=== PATIENT | female | born 1965 | race Native Hawaiian/Other Pacific Islander ===

== ENCOUNTER 2022-01-30 10:22 | Outpatient (CLI) | payer OTHER, SELFPAY ==
[2022-01-30 17:41] LABS: Chloride* 101 mmol/L (96-114); Potassium* 3.9 mmol/L (3.6-5.1); Sodium* 135 mmol/L (135-149)
[2022-01-30 17:43] LABS: Creatinine* 0.6 mg/dL (0.5-1.5); Estimated Glomerular Filt Rate 105 ml/min
[2022-01-30 17:44] LABS: Blood Urea Nitrogen* 18 mg/dL (7-30); Carbon Dioxide* 28 mmol/L (20-32); Glucose* 93 mg/dL (60-115)
[2022-01-30 17:45] LABS: Calcium* 9.7 mg/dL (8.4-10.6)
== END 2022-01-30 10:23 | disposition home or self-care (01) ==
LOC: LONREF 10:24
PROVIDERS: PCP Family Medicine; Visit Provider Family Medicine
DX: I10 Essential (primary) hypertension (principal)
CPT/HCPCS: 80048

== ENCOUNTER 2022-04-10 08:00 | Outpatient (CLI) | payer OTHER, SELFPAY ==
--- NOTE | 2022-04-10 08:15 | CRLHL7_ITS ---
For Patients: As a result of the Century Cures Act, medical imaging exams and procedure reports are released immediately into your electronic medical record. You may view this report before your referring provider. If you have questions, please contact your health care provider. BILATERAL SCREENING MAMMOGRAM WITH COMPUTER-AIDED DETECTION TECHNIQUE: CC and MLO views were obtained. These mammographic images have been obtained using full-field digital technique. These mammographic images were interpreted with the benefit of computer-aided detection. COMPARISON FILM: 04/02/20, 11/04/17, 07/05/16. FINDINGS: The breasts are heterogeneously dense, which may obscure small masses IMPRESSION: There is no radiographic evidence for malignancy. ASSESSMENT: BI-RADS Category 1: Negative RECOMMENDATION: Routine screening mammogram in 1 year. A lay language report of this examination will be provided to the patient. Dipesh Lopes M.D. Diagnostic Radiologist [email or web address] ADDY/Dictated by: Dipesh Lopes MD @ 04/10/2022 8:58:00 AM (Electronically Signed)
== END 2022-04-10 08:01 | disposition home or self-care (01) ==
LOC: MAMMO 08:01
PROVIDERS: PCP Family Medicine; Visit Provider Family Medicine
DX: Z12.31 Encounter for screening mammogram for malignant neoplasm of breast (principal); R92.2 Inconclusive mammogram
CPT/HCPCS: 77063; 77067

== ENCOUNTER 2023-06-08 08:02 | Outpatient (CLI) | payer OTHER, SELFPAY ==
--- NOTE | 2023-06-08 08:15 | CRLHL7_ITS ---
For Patients: As a result of the Century Cures Act, medical imaging exams and procedure reports are released immediately into your electronic medical record. You may view this report before your referring provider. If you have questions, please contact your health care provider. BILATERAL SCREENING MAMMOGRAM WITH COMPUTER-AIDED DETECTION TECHNIQUE: CC and MLO views were obtained. These mammographic images have been obtained using full-field digital technique. These mammographic images were interpreted with the benefit of computer-aided detection. COMPARISON FILM: 04/10/22, 04/02/20, 11/04/17. FINDINGS: The breasts are heterogeneously dense, which may obscure small masses IMPRESSION: There is no radiographic evidence for malignancy. ASSESSMENT: BI-RADS Category 1: Negative RECOMMENDATION: Routine screening mammogram in 1 year. A lay language report of this examination will be provided to the patient. Dipesh Lopes M.D. Diagnostic Radiologist [email or web address] ADDY/Dictated by: Dipesh Lopes MD @ 06/08/2023 9:24:00 AM (Electronically Signed)
== END 2023-06-08 08:03 | disposition home or self-care (01) ==
LOC: MAMMO 08:07
PROVIDERS: PCP Family Medicine; Visit Provider Family Medicine
DX: Z12.31 Encounter for screening mammogram for malignant neoplasm of breast (principal); R92.2 Inconclusive mammogram
CPT/HCPCS: 77067

== ENCOUNTER 2023-08-23 12:57 | Outpatient (CLI) | payer OTHER, SELFPAY | END 2023-08-23 12:58 | disposition home or self-care (01) | PROVIDERS: PCP Family Medicine; Visit Provider Family Medicine | DX: I10 Essential (primary) hypertension (principal); R63.5 Abnormal weight gain; Z13.29 Encounter for screening for other suspected endocrine disorder | CPT/HCPCS: 80048; 84443 ==

== ENCOUNTER 2024-06-07 13:54 | Outpatient (CLI) | payer OTHER, SELFPAY | END 2024-06-07 13:55 | disposition home or self-care (01) | PROVIDERS: PCP Family Medicine; Visit Provider Registered Nurse | DX: Z01.419 Encounter for gynecological examination (general) (routine) without abnormal findings (principal); I10 Essential (primary) hypertension; E55.9 Vitamin D deficiency, unspecified; R73.03 Prediabetes; Z13.6 Encounter for screening for cardiovascular disorders; Z13.29 Encounter for screening for other suspected endocrine disorder; Z13.1 Encounter for screening for diabetes mellitus; Z78.0 Asymptomatic menopausal state; Z13.9 Encounter for screening, unspecified | CPT/HCPCS: 80061; 83001; 84443 ==

== ENCOUNTER 2024-06-21 10:10 | Outpatient (CLI) | payer OTHER, SELFPAY ==
--- NOTE | 2024-06-21 10:45 | CRLHL7_ITS ---
For Patients: As a result of the Cures Act, medical imaging exams and procedure reports are released immediately into your electronic medical record. You may view this report before your referring provider. If you have questions, please contact your health care provider. BILATERAL DIAGNOSTIC MAMMOGRAM WITH COMPUTER-AIDED DETECTION AND TOMOSYNTHESIS LEFT AXILLARY ULTRASOUND CLINICAL HISTORY: LEFT axillary lump. COMPARISON: 06/08/23, 04/10/22, 04/03/21. TECHNIQUE: Digital BILATERAL mammogram in four projections with computer-aided detection. Tomosynthesis was used in this interpretation. Real-time ultrasound imaging of LEFT axilla with imaging documentation. BREAST COMPOSITION: The breasts are heterogeneously dense, which may obscure small masses. FINDINGS: 3D CC/MLO BILATERAL mammogram images submitted. No suspicious mass or architectural distortion. No adenopathy or suspicious calcifications. Targeted LEFT axillary ultrasound performed. In the area of concern, there is a circumscribed cystic lesion with internal echoes located just beneath the skin and involving the epidermal layer measuring 4 x 2 x 3 mm. IMPRESSION: Inflamed sebaceous or pilonidal cyst LEFT axillary skin measuring 4 x 2 x 3 mm. No suspicious findings. RECOMMENDATIONS: Clinical follow-up. Routine screening mammography. BI-RADS Category 2: Benign A lay language report of this examination will be provided to the patient. Dictated by Dipesh Lopes MD @ 06/21/2024 1:06:50 PM .sp SP/Dictated by: Dipesh Lopes MD @ 06/21/2024 1:06:00 PM (Electronically Signed)
--- NOTE | 2024-06-21 11:15 | CRLHL7_ITS ---
For Patients: As a result of the Century Cures Act, medical imaging exams and procedure reports are released immediately into your electronic medical record. You may view this report before your referring provider. If you have questions, please contact your health care provider. PLEASE SEE BILATERAL BREAST DIAGNOSTIC MAMMOGRAM PERFORMED SAME DAY. CRL:sp SP/Dictated by: Dipesh Lopes MD @ 06/21/2024 1:07:00 PM (Electronically Signed)
== END 2024-06-21 10:11 | disposition home or self-care (01) ==
LOC: MAMMO 10:11
PROVIDERS: PCP Family Medicine; Visit Provider Registered Nurse
DX: N63.32 Unspecified lump in axillary tail of the left breast (principal); L72.3 Sebaceous cyst
CPT/HCPCS: 76642; 77066; G0279

== ENCOUNTER 2024-12-01 08:51 | Outpatient (CLI) | payer OTHER, SELFPAY | END 2024-12-01 08:52 | disposition home or self-care (01) | LOC: FBOREF 08:51 | PROVIDERS: PCP Family Medicine; Visit Provider Family Medicine | DX: I10 Essential (primary) hypertension (principal) | CPT/HCPCS: 80048 ==